=== PATIENT | male | born 1980 | race Hispanic/Latino ===

== ENCOUNTER 2016-12-27 11:24 | Emergency (ER) | payer OTHER ==
[~2016-12-27] VITALS: Ht 180.3 cm; Wt 81.8 kg
[~2016-12-27 11:24] MED LIST: AMOX-366 PO
[2016-12-27 12:09] VITALS: BP 116/70; PULSE 76; RESP 16; O2SAT 98
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
[2016-12-27] MEDS ORDERED: Lidocaine 1%-Epi 1:100,000 50 mL Inj NERVEBLOCK ONE (12:30)
[2016-12-27] MEDS ORDERED: CEPH500T PO (13:12)
== END 2016-12-27 13:19 | disposition home or self-care (01) ==
LOC: SED 11:24
DX: L02.512 Cutaneous abscess of left hand (principal); X19.XXXA Contact with other heat and hot substances, initial encounter; Y93.89 Activity, other specified; Y92.69 Other specified industrial and construction area as the place of occurrence of the external cause; Y99.0 Civilian activity done for income or pay; Z98.890 Other specified postprocedural states
CPT/HCPCS: 10060; 96372; 99283; J1885